=== PATIENT | female | born 1945 | race American Indian/Alaskan Native ===

== ENCOUNTER 2017-10-03 16:00 | Emergency (ER) | payer MEDICARE ==
[2017-10-03 16:53] LABS: Basophils % (Auto) 0.4 % (0.0-1.8); Eosinophils % (Auto) 0.4 % (0.0-4.3); Hematocrit 31.4 % (30.3-42.9); Hemoglobin 10.3 gm/dl (10.1-14.3); Lymphocytes # (Auto) 1.1 K/mm3 (1.2-5.4); Lymphocytes % (Auto) 30.7 % (13.4-35.0); Mean Corpuscular HGB Conc 33 % (30-34); Mean Corpuscular Hemoglobin 29 pg (28-32); Mean Corpuscular Volume 87 fl (79-97); Monocytes # (Auto) 0.4 K/mm3 (0.0-0.8); Monocytes % (Auto) 12.7 % (0.0-7.3); Platelet Count 122 K/mm3 (140-440); Red Blood Count 3.61 M/mm3 (3.65-5.03); Red Cell Distribution Width 16.6 % (13.2-15.2)
--- NOTE | 2017-10-03 16:54 | Emergency Department Report ---
ED Abdominal Pain HPI - General Chief Complaint: Abdominal Pain Stated Complaint: ABD PAIN Time Seen by Provider: 10/03/17 16:32 Source: patient, EMS, old records reviewed (no previous record) Mode of arrival: Stretcher Limitations: No Limitations - History of Present Illness Initial Comments: 72-year-old female with a past medical history of hypertension and previous cholecystectomy and cholecystectomy presents to the hospital complaining of periumbilical abdominal pain 2 days. Pain is constant, burning, with no aggravating or alleviating factors. Positive nausea without vomiting. Patient reports infrequent bowel movements chronically but last bowel movement was last night. Pain initially described as 8/10 upon arrival. I evaluated patient within 1 hour of arrival she states that pain has subsided and currently 0. She denies dysuria, fever, melena, hematochezia, or diarrhea. I suspect the patient has some mild dementia. He is alert to self, no she's in the hospital, but does not know the year. She lives in [place] and has been visiting her sons here in [place] for the past 2 weeks. - Related Data Previous Rx's Medication Instructions Recorded Last Taken Type Nitrofurantoin [place]/M-Cryst 100 mg PO Q12HR #14 capsule 10/03/17 Unknown Rx [Macrobid CAP] Allergies Allergy/AdvReac Type Severity Reaction Status Date / Time codeine Allergy Hives Verified 10/03/17 16:19 ED Review of Systems ROS: Stated complaint: ABD PAIN Other details as noted in HPI Comment: All other systems reviewed and negative Other: General: No limitations, patient is alert in no acute distress Head exam: Atraumatic, normocephalic Eyes exam: Normal appearance ENT: Moist mucous membrane, normal oropharynx Neck exam: Normal inspection, full range of motion, no meningismus nontender Respiratory exam: Clear to auscultation bilateral, no wheezes, rales, crackles Cardiovascular: Normal rate and rhythm, normal heart sounds Abdomen: Soft, nondistended, and nontender, with normal bowel sounds, no rebound, or guarding. Previous abdominal surgical scar Extremity: Full range of motion normal inspection no deformity Back: Normal Inspection, full range of motion, no tenderness Neurologic: Alert, oriented x2, cranial nerves intact, no motor or sensory deficit Psychiatric: normal affect, normal mood Skin: Warm, dry, intact ED Past Medical Hx - Past Medical History Hx Hypertension: Yes - Surgical History Hx Cholecystectomy: Yes Additional Surgical History: hysterectomy - Social History Smoking Status: Never Smoker Substance Use Type: None - Medications Home Medications: Home Medications Medication Instructions Recorded Confirmed Last Taken Type Nitrofurantoin [place]/M-Cryst 100 mg PO Q12HR #14 capsule 10/03/17 Unknown Rx [Macrobid CAP] ED Physical Exam - General Limitations: No Limitations - Other Other exam information: General: No limitations, patient is alert in no acute distress Head exam: Atraumatic, normocephalic Eyes exam: Normal appearance, pupils equal reactive to light, extraocular movements intact ENT: Moist mucous membrane, normal oropharynx Neck exam: Normal inspection, full range of motion, no meningismus nontender Respiratory exam: Clear to auscultation bilateral, no wheezes, rales, crackles Cardiovascular: Bradycardia normal rhythm Abdomen: Soft, nondistended, and nontender, with normal bowel sounds, no rebound, or guarding Extremity: Full range of motion normal inspection no deformity Back: Normal Inspection, full range of motion, no tenderness Neurologic: Alert, oriented x3, cranial nerves intact, no motor or sensory deficit Psychiatric: normal affect, normal mood Skin: Warm, dry, intact ED Course Vital Signs 10/03/17 10/03/17 10/03/17 16:20 16:34 16:45 Temperature 98.4 F Pulse Rate 51 L 49 L Respiratory 16 10 L Rate Blood Pressure 106/59 119/65 Blood Pressure [Left] O2 Sat by Pulse 97 98 97 Oximetry 10/03/17 10/03/17 10/03/17 16:49 17:15 17:30 Temperature Pulse Rate 50 L 47 L 47 L Respiratory 18 11 L 18 Rate Blood Pressure 122/62 108/63 Blood Pressure 119/65 [Left] O2 Sat by Pulse 99 Oximetry 10/03/17 10/03/17 10/03/17 17:45 18:01 18:15 Temperature Pulse Rate 50 L 48 L 50 L Respiratory 14 15 10 L Rate Blood Pressure 114/69 112/66 112/67 Blood Pressure [Left] O2 Sat by Pulse 95 Oximetry 10/03/17 10/03/17 10/03/17 18:31 18:45 18:50 Temperature Pulse Rate 50 L 51 L Respiratory 13 11 L Rate Blood Pressure 130/71 105/68 Blood Pressure [Left] O2 Sat by Pulse 98 99 Oximetry 10/03/17 10/03/17 10/03/17 19:01 19:15 19:31 Temperature Pulse Rate 55 L 61 56 L Respiratory 18 16 13 Rate Blood Pressure 141/86 141/86 101/64 Blood Pressure [Left] O2 Sat by Pulse 97 99 98 Oximetry 10/03/17 10/03/17 10/03/17 19:45 20:00 20:15 Temperature Pulse Rate 52 L 50 L 49 L Respiratory 11 L 13 15 Rate Blood Pressure 136/83 124/75 124/75 Blood Pressure [Left] O2 Sat by Pulse 100 91 98 Oximetry 10/03/17 10/03/17 10/03/17 20:30 20:45 21:01 Temperature Pulse Rate 49 L 45 L 46 L Respiratory 11 L 12 9 L Rate Blood Pressure 128/76 128/76 128/76 Blood Pressure [Left] O2 Sat by Pulse 99 97 59 L Oximetry 10/03/17 10/03/17 21:03 21:15 Temperature 98.1 F Pulse Rate 47 L Respiratory 14 Rate Blood Pressure 128/76 Blood Pressure [Left] O2 Sat by Pulse 100 Oximetry - Reevaluation(s) Reevaluation #1: 10/03/17 22:12 Throughout ED stay patient exhibited symptoms of dementia with confusion as to why she was here, difficulty taking direction, and forgetting what we had just told her. ED Medical Decision Making - Lab Data Result diagrams: 10/03/17 16:32 10/03/17 16:32 Lab Results 10/03/17 10/03/17 10/03/17 Range/Units 16:32 16:32 18:48 WBC 3.5 L (4.5-11.0) K/mm3 RBC 3.61 L (3.65-5.03) M/mm3 Hgb 10.3 (10.1-14.3) gm/dl Hct 31.4 (30.3-42.9) % MCV 87 (79-97) fl MCH 29 (28-32) pg MCHC 33 (30-34) % RDW 16.6 H (13.2-15.2) % Plt Count 122 L (140-440) K/mm3 Lymph % (Auto) 30.7 (13.4-35.0) % [place] % (Auto) 12.7 H (0.0-7.3) % Eos % (Auto) 0.4 (0.0-4.3) % Baso % (Auto) 0.4 (0.0-1.8) % Lymph # 1.1 L (1.2-5.4) K/mm3 [place] # 0.4 (0.0-0.8) K/mm3 Eos # 0.0 (0.0-0.4) K/mm3 Baso # 0.0 (0.0-0.1) K/mm3 Seg Neutrophils % 55.8 (40.0-70.0) % Seg Neutrophils # 1.9 (1.8-7.7) K/mm3 Sodium 143 (137-145) mmol/L Potassium 4.3 (3.6-5.0) mmol/L Chloride 106.2 (98-107) mmol/L Carbon Dioxide 24 (22-30) mmol/L Anion Gap 17 mmol/L BUN 24 H (7-17) mg/dL Creatinine 1.8 H (0.7-1.2) mg/dL Estimated GFR 33 ml/min BUN/Creatinine Ratio 13 % Glucose 80 (65-100) mg/dL Calcium 8.5 (8.4-10.2) mg/dL Total Bilirubin 0.30 (0.1-1.2) mg/dL AST 18 (5-40) units/L ALT 6 L (7-56) units/L Alkaline Phosphatase 66 (35-129) units/L Total Protein 7.1 (6.3-8.2) g/dL Albumin 3.5 L (3.9-5) g/dL Albumin/Globulin Ratio 1.0 % Lipase 51 (13-60) units/L Urine Color Yellow (Yellow) Urine Turbidity Clear (Clear) Urine pH 5.0 (5.0-7.0) Ur Specific [place] 1.016 (1.003-1.030) Urine Protein <15 mg/dl (Negative) mg/dL Urine Glucose (UA) Neg (Negative) mg/dL Urine Ketones Neg (Negative) mg/dL Urine Blood Mod (Negative) Urine Nitrite Neg (Negative) Urine Bilirubin Neg (Negative) Urine Urobilinogen < 2.0 (<2.0) mg/dL Ur Leukocyte Esterase Sm (Negative) Urine WBC (Auto) 17.0 H (0.0-6.0) /HPF Urine RBC (Auto) 11.0 (0.0-6.0) /HPF U Epithel Cells (Auto) 1.0 (0-13.0) /HPF Urine Bacteria (Auto) 1+ (Negative) /HPF Urine Mucus Few /HPF - Medical Decision Making Abdominal pain Asymptomatic in the ED Abdominal x-ray unremarkable Urine clean cath positive for blood test and wbc pt without flank pain or vomiting will treat for uti: Macrobid given tylenol for pain prn Dehydration Orthostatic vital signs reveal a drop in blood pressure with standing IV fluids 1 L given Patient has renal insufficiency suggestive of a prerenal ratio. Normal bicarbonate/no acidosis Outpatient follow-up will be recommended Mild thrombocytopenia Follow-up recommended Daughter did show up in the ER and confirmed that this is patient's mental status. - Differential Diagnosis constipation, dyspepsia, PUD, UTI, diverticulitis Critical Care Time: No Critical care attestation.: If time is entered above; I have spent that time in minutes in the direct care of this critically ill patient, excluding procedure time. ED Disposition Clinical Impression: UTI (urinary tract infection), Renal insufficiency, Dementia, Thrombocytopenia Disposition: DC- TO HOME OR SELFCARE Is pt being admited?: No Does the pt Need Aspirin: No Condition: Stable Instructions: Urinary Tract Infection in Women (ED), Thrombocytopenia (ED), Dementia (ED), Impaired Kidney Function (ED) Additional Instructions: You have been prescribed antibiotics for urinary tract infection. Take as prescribed until completion. Your labs shows several mild abnormalities including slightly low platelet level (thrombocytopenia) and a slightly abnormal kidney function. Please follow up with a primary care doctor and optometry assistant last kidney specialist for further evaluation and monitoring. Please return if symptoms worsen as indicated by her discharge instructions. Prescriptions: Nitrofurantoin [place]/M-Cryst [Macrobid CAP] 100 mg PO Q12HR #14 capsule Referrals: PRIMARY CAREMD [Primary Care Provider] - 3-5 Days BRAVO MALDONADO MD [Staff Physician] - 3-5 Days (Kidney doctor) LAURO TAM MD [Staff Physician] - 3-5 Days (primary care doctor) [facility] [Provider Group] - 3-5 Days (primary care clinic) Time of Disposition: 22:15
[2017-10-03 17:13] LABS: Albumin 3.5 g/dL (3.9-5); Calcium 8.5 mg/dL (8.4-10.2)
[2017-10-03] MEDS ORDERED: NACL 0.9% 1000 ML 1,000 ML IV ONE (17:25)
--- NOTE | 2017-10-03 18:20 | XRay Report ---
FINAL REPORT EXAM: XR ABD SERIES W CXR 1V HISTORY: abd pain, infrequent stools TECHNIQUE: PA view of the chest and supine and erect views of the abdomen PRIORS: None. FINDINGS: Chest: Lungs are clear. Trachea is midline. Cardiac size is normal. Aorta is unfolded, likely age related. Mild calcification of the aortic arch is seen. Bony structures are intact. Abdomen: The bowel gas pattern is nonspecific. No free air is identified. Soft tissues have no evidence for mass shadows or calcifications. The bony structures are intact. IMPRESSION: 1. No acute cardiopulmonary process seen. 2. Nonspecific, nonobstructive bowel gas pattern with no acute process noted.
[2017-10-03 19:00] LABS: Bacteria,Urine 1+ /HPF (Negative); Bilirubin,Urine NEG (Negative); Blood,Urine MOD (Negative); Color,Urine Yellow (Yellow); Mucus,Urine FEW /HPF; Nitrite,Urine NEG (Negative); Protein,Urine <15 mg/dL mg/dL (Negative); Urobilinogen,Urine < 2.0 mg/dL (<2.0)
[2017-10-03] MEDS ORDERED: MACROBID PO ONE (19:12)
[2017-10-03] MEDS ORDERED: XANAX ONE (20:33)
[2017-10-03] MEDS ORDERED: XANAX PO ONE (20:52)
[2017-10-03 23:17] VITALS: BP 137/68
== END 2017-10-03 23:17 | disposition home or self-care (01) ==
LOC: ED 16:00
DX: N39.0 Urinary tract infection, site not specified (principal); N28.9 Disorder of kidney and ureter, unspecified; F03.90 Unspecified dementia, unspecified severity, without behavioral disturbance, psychotic disturbance, mood disturbance, and anxiety; D69.6 Thrombocytopenia, unspecified; I10 Essential (primary) hypertension; Z88.6 Allergy status to analgesic agent
CPT/HCPCS: 36415; 74022; 80053; 81001; 83690; 85025; 87086; 96360; 96361; 99284; J7030